=== PATIENT | male | born 1960 | race Caucasian/White ===

== ENCOUNTER 2018-05-29 09:00 | Outpatient (RCR) | payer MEDICARE, SELFPAY | END 2018-05-29 11:00 | disposition home or self-care (01) | LOC: PT 09:00 | PROVIDERS: Visit Provider Orthopaedic Surgery | DX: M51.36 Other intervertebral disc degeneration, lumbar region (principal); M47.898 Other spondylosis, sacral and sacrococcygeal region | CPT/HCPCS: 97010; 97014; 97110; 97140; 97163; 97164; G0283 ==